=== PATIENT | male | born 1960 | race African-American/Black ===

== ENCOUNTER → 2016-06-23 | Outpatient (CLI) | payer OTHER ==
[~2016-06-23] MED LIST: AMLODIPINE BESY10 MG PO; BENAZEPRIL HCL40 MG PO; BENAZEPRIL PO; CLEOCIN PO; CLONIDINE HCL0.3 MG PO; CLONIDINE PO; K-DUR20 ME1 PO; KCL PO; LEXAPRO PO; LISINOPRIL PO; LOPRESSOR PO; LORTAB 7.5-5001 TAB PO; METOPROLOL TAR100 MG PO; NORVASC PO; VICODIN PO
--- NOTE | ~2016-06-23 | CT4 ---
[facility] A Service of [facility] RADIOLOGY TEXT RESULTS PATIENT: SHARDA KHOURY LOCATION: [facility] : 60 UNIT #: [id number] AGE: [address]: Jason Gilmore MD SEX: M ORDER DR: [id number] [address] [place] [id number] [facility]. [place], [place] [address] [id number] O MR#: [id number] #: [id number] NAME: SHARDA KHOURY. : 1960 SEX: M STUDY DATE/TIME: 06/23/2016 15:28 UNIT: [facility] ROOM: STUDY DESCRIPTION: CT Abd and Pelv Wo Cont Attending Physician: Jason Gilmore M.D. Referring Physician: Jason Gilmore M.D. Ordering Physician: Jason Gilmore M.D. Primary Care Physician: Seth Hyman M.D. MEDICAL IMAGING REPORT This report is preliminary unless electronic signature is present EXAM CT abdomen and pelvis without contrast HISTORY Abdominal pain and rectal bleeding for a week with diarrhea. TECHNIQUE This CT exam was performed with one or more of the following radiation dose reduction techniques: automatic exposure control, adjustment of mA and/or kV according to patient size, and iterative reconstruction. Axial 5 mm images were obtained through the abdomen and pelvis with oral contrast only. FINDINGS Lung bases are clear. The liver, gallbladder, spleen, pancreas, adrenal glands and kidneys are normal in appearance. The aorta is normal in size. There is no adenopathy. The bowel is normal. The bladder and prostate gland are normal. The bones show mild degenerative change. IMPRESSION Normal unenhanced CT abdomen and pelvis except for mild bony degenerative change in the spine. There is no evidence of colitis or cause for the patient's abdomen pain. Dictated by... Gerson Denney M.D. THIS IS AN ELECTRONICALLY VERIFIED REPORT [facility] A Service [facility] RADIOLOGY TEXT RESULTS PATIENT: SHARDA KHOURY LOCATION: [facility] : 60 UNIT #: [id number] AGE: [address]: Jason Gilmore MD SEX: M ORDER DR: Gerson Denney M.D. at 06/24/2016 6:47 PM MONIQUE/benson TD: 06/23/2016 20:27 JOB #: [id number] MEDICAL IMAGING REPORT Page 1 of 1 COPY
[2016-06-23 15:30] LABS: POC - CREATININE 2.05 mg/dL (0.64-1.27)
== END | disposition home or self-care (01) ==
LOC: CCAT 13:32
PROVIDERS: Family Medicine
DX: R10.9 Unspecified abdominal pain (principal); R19.7 Diarrhea, unspecified; K92.1 Melena; M47.899 Other spondylosis, site unspecified
CPT/HCPCS: 74176; 82565

== ENCOUNTER → 2016-07-06 | Outpatient (CLI) | payer OTHER ==
--- NOTE | ~2016-07-06 | US6 ---
[facility] A Service of [facility] RADIOLOGY TEXT RESULTS PATIENT: SHARDA KHOURY LOCATION: [facility] : 60 UNIT #: [id number] AGE: [address]: Jason Gilmore MD SEX: M ORDER DR: [id number] [facility] [address] [place], [place] [address] [id number] O MR#: [id number] Acc #: [id number] NAME: SHARDA KHOURY. : 1960 SEX: M STUDY DATE/TIME: 07/06/2016 10:43 UNIT: [facility] ROOM: STUDY DESCRIPTION: US Abdominal Limited Attending Physician: Jason Gilmore M.D. Ordering Physician: Jason Gilmore M.D. Primary Care Physician: Seth Hyman M.D. MEDICAL IMAGING REPORT This report is preliminary unless electronic signature is present EXAM Right upper quadrant ultrasound 07/06/2016 HISTORY Right upper quadrant abdominal pain for 2 weeks and abnormally elevated liver enzymes. FINDINGS Findings the liver is homogeneous in echotexture and demonstrates no cystic or solid mass lesions. The intra and extrahepatic bile ducts are not dilated. The gallbladder contains small shadowing gallstones but there is no evidence of gallbladder wall thickening or pericholecystic fluid. The common duct measures 4 mm. The pancreas is normal. There is increased right renal cortical echogenicity characteristic of medical renal disease. Clinical correlation recommended. IMPRESSION 1. Cholelithiasis. 2. Increased right renal cortical echogenicity characteristic of medical renal disease. Dictated by... Evert Caban M.D. THIS IS AN ELECTRONICALLY VERIFIED REPORT Evert Caban M.D. at 07/07/2016 8:10 AM OLIVIER/scottie TD: 07/06/2016 17:41 JOB #: [id number] MEDICAL IMAGING REPORT Page 1 of 1 COPY
== END | disposition home or self-care (01) ==
LOC: CGUS 10:17
DX: R79.89 Other specified abnormal findings of blood chemistry (principal); K80.20 Calculus of gallbladder without cholecystitis without obstruction
CPT/HCPCS: 76705

== ENCOUNTER → 2016-07-24 | Outpatient (CLI) | payer OTHER ==
--- NOTE | ~2016-07-24 | EKG ---
PATIENT: SHARDA KHOURY UNIT #: [id number] Ventricular Rate: 70 BPM Atrial Rate: 70 BPM P-R Interval: 154 ms QRS Duration: 100 ms Q-T Interval: 424 ms QTC Calculation(Bezet): 457 ms P Freeman Spur: 67 degrees Calculated R Freeman Spur: 65 degrees Calculated T Freeman Spur: 60 degrees Diagnosis Line: Sinus rhythm with frequent Premature ventricular Diagnosis Line: complexes Diagnosis Line: Minimal voltage criteria for LVH, may be normal Diagnosis Line: variant Diagnosis Line: Borderline ECG Diagnosis Line: No previous ECGs available Diagnosis Line: Confirmed by PARISA GRAHAM MD ([id number]) on Diagnosis Line: 07/24/2016 10:12:22 PM INTERPRETING MD: YOSELIN
[2016-07-24 13:35] LABS: HEMATOCRIT 35.1 % (38.0-50.0); HEMOGLOBIN 11.9 gm/dL (13.0-16.0); MEAN CELL VOLUME 101.3 FL (83-96); MEAN CORPUSCULAR HEMOGLOBIN 34.3 PG (28-34); MEAN CORPUSCULAR HGB CONC 33.8 g/dL (30-36); MEAN PLATELET VOLUME 8.6 FL (6.5-11.5); RED BLOOD COUNT 3.47 X10e (3.90-5.60); RED CELL DISTRIBUTION WIDTH 14.9 % (11.0-15.5)
[2016-07-24 14:01] LABS: ALBUMIN SERUM 3.3 g/dL (3.5-5.0); BUN/CREATININE RATIO 17.05; CALCIUM SERUM 8.8 mg/dL (8.4-10.2); CREATININE SERUM 1.7 mg/dL (0.6-1.4); GLOM FILT RATE Estimated 51.1 mL/min (>60); POTASSIUM 3.4 mmol/L (3.5-5.1); PROTEIN TOTAL SERUM 6.8 g/dL (6.0-8.3)
== END | disposition home or self-care (01) ==
LOC: CAMB 12:56
PROVIDERS: Surgery
DX: Z01.818 Encounter for other preprocedural examination (principal); R94.31 Abnormal electrocardiogram [ECG] [EKG]
CPT/HCPCS: 36415; 80053; 85027; 93005

== ENCOUNTER → 2016-07-28 | Day surgery (SDC) | payer OTHER ==
--- NOTE | ~2016-07-28 | OR ---
Unit #: [id number] #: [id number] Patient: SHARDA KHOURY [id number] [address] [place], [place] [address] [id number] O MR#: [id number] NAME: SHARDA KHOURY ROOM: Date of Procedure: 07/28/2016 Admission Date: 07/28/2016 Surgeon: Liban Rosales Jr., M.D. : 1960 Attending Physician: Liban Rosales Jr., M.D. Primary Care Physician: Seth Hyman M.D. OPERATIVE REPORT INDICATION FOR PROCEDURE The patient is a 56-year-old black male, recently was referred to the office complaining of some intermittent mid epigastric and right upper quadrant abdominal pain. Workup revealed evidence of cholelithiasis. He is brought in this time for laparoscopic cholecystectomy at his request. He understands the procedure including the risks, including that of common duct injury, biliary leak, and bleeding, and intra-abdominal organ injury, and consents. He has had a known past history for hepatitis B. PREOPERATIVE DIAGNOSES Chronic cholecystitis and cholelithiasis. POSTOPERATIVE DIAGNOSES Chronic cholecystitis and cholelithiasis, noting chronic inflammation of the gallbladder and macronodular cirrhosis of the liver. ANESTHESIA General with endotracheal intubation and 0.5% Marcaine with epinephrine locally. PROCEDURE PERFORMED Laparoscopic cholecystectomy. DESCRIPTION OF PROCEDURE The patient was positioned in supine position. After being anesthetized and intubated, he was prepped and draped in routine fashion for laparoscopic cholecystectomy. A small infraumbilical incision was made approximately 1 cm in length. This was carried down to the fascia. The fascia was lifted between 2 Erin clamps and a Veress needle was introduced into the abdomen. The abdomen was then inflated with CO2 gas. A 5-mm port was introduced to the abdomen followed by the camera. There was no evidence of any injury related to introduction of the port or the Veress needle. Brief intra-abdominal exploration was carried out. The patient was noted to have a macronodular cirrhosis with no evidence of any ascites. The gallbladder appeared chronically inflamed. Two 5-mm ports were placed laterally, an 11 mm port just to the right of the upper midline. The gallbladder was lifted. Dissection was carried out in the triangle of Calot, cystic duct, which was only 1 to 2 mm in diameter, was isolated, hemoclipped x4 and divided approximately a centimeter from its junction with the common duct. Cystic artery was identified, hemoclipped x3, and divided. The gallbladder was then removed from its bed with the hook cautery using a current of 20. After it was released, it was removed Unit #: [id number] #: [id number] Patient: SHARDA KHOURY through the upper midline incision along with the grasping clamp and the port. The port was replaced. Subhepatic space checked. There was a small amount of oozing from the gallbladder bed, which was controlled with the hook cautery using a current of 40. After total hemostasis was noted, the ports were removed and CO2 was expressed from the abdomen. There was no evidence of any bleeding from the port sites. The fascia in the larger port site which had to be stretched to enable removing of the gallbladder. The fascia was approximated with interrupted 0 Vicryl sutures. The wounds were irrigated. After hemostasis achieved with Bovie cautery, skin edges were approximated with stainless-steel skin clips and skin stapling device. Sterile dressings were applied externally. Estimated blood loss less than 100 mL. The patient received less than 2000 mL of crystalloid solution during the procedure. Sponges and instruments counts were correct x3. No drains used. No complications. The patient was taken to the recovery room with stable vital signs in satisfactory condition. Dictated by... Liban Rosales Jr., Luciana WILEY/ariadne TD: 07/29/2016 02:13 JOB #: [id number] OPERATIVE REPORT Page 1 of 1 X Liban Rosales MD X PROCEDURE OPERATIVE NOTE
[2016-07-28 10:55] LABS: BASOPHIL% 0.8 % (0-2.5); EOSINOPHIL# 0.4 X10e3 (0-0.7); EOSINOPHIL% 7.7 % (0.0-7.0); HEMATOCRIT 33.4 % (38.0-50.0); HEMOGLOBIN 11.3 gm/dL (13.0-16.0); LYMPHOCYTE# 1.8 X10e3 (1.0-3.5); LYMPHOCYTE% 34.2 % (17.0-45.0); MEAN CELL VOLUME 101.1 FL (83-96); MEAN CORPUSCULAR HEMOGLOBIN 34.2 PG (28-34); MEAN CORPUSCULAR HGB CONC 33.8 g/dL (30-36); MEAN PLATELET VOLUME 8.8 FL (6.5-11.5); MONOCYTE# 0.4 X10e3 (0-1.0); MONOCYTE% 7.1 % (3.0-12.0); NEUTROPHIL# 2.7 X10e3 (1.5-7.1); NEUTROPHIL% 50.2 % (40-75); RED BLOOD COUNT 3.31 X10e (3.90-5.60); RED CELL DISTRIBUTION WIDTH 14.6 % (11.0-15.5); WHITE BLOOD COUNT 5.4 X10e3 (4.0-10.5)
[2016-07-28 11:59] LABS: DIFF IND YES; PLATELET COUNT 54 X10e3 (140-420)
[2016-07-28 12:05] LABS: ANISOCYTOSIS SL; PLATELET ESTIMATE DECREASED (NORMAL); RBC NORMAL YES
== END | disposition home or self-care (01) ==
LOC: CSUR 09:40
PROVIDERS: Anesthesiology
DX: K80.10 Calculus of gallbladder with chronic cholecystitis without obstruction (principal); K74.69 Other cirrhosis of liver; B19.10 Unspecified viral hepatitis B without hepatic coma; B19.20 Unspecified viral hepatitis C without hepatic coma; I12.9 Hypertensive chronic kidney disease with stage 1 through stage 4 chronic kidney disease, or unspecified chronic kidney disease; N18.2 Chronic kidney disease, stage 2 (mild); F17.200 Nicotine dependence, unspecified, uncomplicated; M19.90 Unspecified osteoarthritis, unspecified site; Z86.73 Personal history of transient ischemic attack (TIA), and cerebral infarction without residual deficits; G47.30 Sleep apnea, unspecified
CPT/HCPCS: 84132; 85025; 88304; J0690; J1100; J1644; J2250; J2270; J2710; J2765

== ENCOUNTER → 2016-09-11 | Outpatient (CLI) | payer OTHER ==
--- NOTE | ~2016-09-11 | US77 ---
[facility] A Service of [facility] RADIOLOGY TEXT RESULTS PATIENT: SHARDA KHOURY LOCATION: [facility] : 60 UNIT #: [id number] AGE: [address]: Kvng Kidd MD SEX: M ORDER DR: [id number] [facility] [address] [place], [place] [address] [id number] O MR#: [id number] Acc #: [id number] NAME: SHARDA KHOURY : 1960 SEX: M STUDY DATE/TIME: 09/11/2016 13:40 UNIT: [facility] ROOM: STUDY DESCRIPTION: US Kidney Bilateral Complete Attending Physician: Kvng Kidd M.D. Referring Physician: Kvng Kidd M.D. Ordering Physician: Kvng Kidd M.D. Primary Care Physician: Seth Hyman M.D. MEDICAL IMAGING REPORT This report is preliminary unless electronic signature is present EXAM Renal ultrasound, 09/11/2016 HISTORY Chronic kidney disease stage 3 and hypertension. Follow-up. FINDINGS The right kidney measured 7.9 cm while the left kidney measured 7.5 cm in longitudinal dimensions. There is no evidence of hydronephrosis or nephrolithiasis. No cystic or solid mass lesions are seen on either kidney. There is increased renal cortical echogenicity characteristic of medical renal disease. The bladder is normal in appearance. IMPRESSION 1. Kidney is somewhat small bilaterally and there is increased renal cortical echogenicity characteristic of medical renal disease. No evidence of hydronephrosis. 2. Images of the bladder are normal. Dictated by... Evert Caban M.D. THIS IS AN ELECTRONICALLY VERIFIED REPORT Evert Caban M.D. at 09/13/2016 2:36 PM Clayton TD: 09/12/2016 13:37 JOB #: [id number] MEDICAL IMAGING REPORT Page 1 of 1 COPY
== END | disposition home or self-care (01) ==
LOC: CGUS 12:45
DX: I12.9 Hypertensive chronic kidney disease with stage 1 through stage 4 chronic kidney disease, or unspecified chronic kidney disease (principal); N18.3 Chronic kidney disease, stage 3 (moderate)
CPT/HCPCS: 76770